=== PATIENT | female | born 2000 | race African-American/Black ===

== ENCOUNTER 2021-05-27 17:19 | Emergency (ER) | payer SELFPAY ==
--- NOTE | ~2021-05-27 | CT_ITS ---
EXAMINATION: CT thoracic lumbar wo con DATE: 05/27/2021 21:15 INDICATION: Paresthesia of the hands and feet TECHNIQUE: Computed tomography (CT) of the thoracic and lumbar spine was performed without intravenou s contrast. The dose-length product (DLP) was 1092.71 mGy-cm. Iterative reconstruction was used. COMPARISON: None FINDINGS: Thoracic spine: There is no fracture, dislocation, or subluxation. The vertebral body heights, alignm ent, and intervertebral disc spaces are normal. The paravertebral soft tissues are unremarkable. Lumbar spine: There is no fracture. There is 1 mm of retrolisthesis of L5 on S1. The vertebral body h eights are normal. There is mild loss of intervertebral disc space height at L5-S1. The paravertebral soft tissues are unremarkable. There is a 4 cm soft tissue density of the left adnexa. IMPRESSION: 1. No acute osseous abnormality of the thoracic spine. 2. Mild lumbar spondylosis. 3. 4 cm soft tissue density of the left adnexa likely related to the left ovary. Follow-up with nonem ergent pelvic ultrasound is recommended. Reviewed, dictated and finalized at location A. IMPRESSION: 1. No acute osseous abnormality of the thoracic spine. 2. Mild lumbar spondylosis. 3. 4 cm soft tissue density of the left adnexa likely related to the left ovary . Follow-up with nonemergent pelvic ultrasound is recommended.
--- NOTE | ~2021-05-27 | CT_ITS ---
EXAMINATION: CT cervical spine wo con DATE: 05/27/2021 21:15 INDICATION: Paresthesia of the hands and feet TECHNIQUE: Computed tomography (CT) of the cervical spine was performed without intravenous contrast. The dose-length product (DLP) was 397.78 mGy-cm. Automated exposure control and iterative reconstruc tion technique were employed. COMPARISON: None FINDINGS: There is reversal of normal cervical lordosis. No fracture, dislocation, or subluxation is identified. The odontoid is intact. The prevertebral soft tissues are normal. IMPRESSION: 1. No acute osseous abnormality. Reviewed, dictated and finalized at location A.
[2021-05-27 17:39] VITALS: BP 118/76; PULSE 73; RESP 18; TEMP 36; O2SAT 100
[2021-05-27] MEDS: ORPHENADRINE CITRATE 100 MG TABLET.ER PO (20:45)
[2021-05-27] MEDS: KETOROLAC (*BKC) 60 MG/2 ML VIAL IM (20:45)
[2021-05-27 21:09] LABS: Add Urine Microscopic? YES; Appearance Urine Cloudy (Clear); Bilirubin Urine Negative (Negative); Blood Urine Negative (Negative); Color Urine Yellow (Yellow); Glucose Urine UA Negative (Negative); Ketones Urine Negative (Negative); Leukocyte Esterase Ur Negative LEU/UL (Negative); Mucus Urine Rare /lpf; Nitrate Urine Negative (Negative); Protein Urine Negative (Negative); Specific Grav Ur 1.012 (1.001-1.035); Squamous Epithelial Cell Urine Moderate /hpf (Few); Urobilinogen Urine Negative mg/dL (<2.0); WBC Urine 0-3 /hpf
--- NOTE | 2021-05-27 21:48 | ED.GENADULT ---
HPI - General Adult General Chief complaint: Back Pain/Injury Stated complaint: Middle Back Pain x1 week, Nausea Time Seen by Provider: 05/27/21 20:20 History of Present Illness HPI narrative: Patient 20-year-old female presents the emergency department with chief complaint of back pain. Patient reports she has history of scoliosis and also history of a prior cervical injury which she wore a brace for some period of time. Patient states that she has been having some tightness in her back and reported that she stretched and popped her back after the pop in her back she felt tingling in her hands and feet denies any bowel or bladder dysfunction denies any saddle anesthesia denies any foot drop. The patient states that the discomfort was intermittent but today she stretched and its been more constant now. The patient states that she had no fever denies any new trauma. Related Data Allergies Allergy/AdvReac Type Severity Reaction Status Date / Time No Known Allergies Allergy Verified 05/27/21 19:26 Review of Systems Review of Systems: A 10 system review of systems was completed on the patient and is negative except for what is stated in the HPI. Nursing and ancillary documentation was reviewed. Exam Narrative: GENERAL: Well-appearing, well-nourished, and in no acute distress. HEAD: Normocephalic, atraumatic. EYES: PERRLA and EOMI. ENT: Nares clear, no rhinorrhea or epistaxis. Mucous membranes moist. NECK: Supple. CHEST: Clear to auscultation. No respiratory distress. HEART: Regular rate and rhythm. No murmur heard. Normal peripheral pulses. ABDOMEN: Soft, nontender, nondistended, normal active bowel sounds. EXTREMITIES: Normal range of motion. No edema. SKIN: Warm, dry, no rash. NEURO: No focal deficits. Alert and oriented x3. PSYCH: Normal mood and affect. Course Vital Signs Vital signs: Vital Signs Temperature 36.0 C L 05/27/21 17:39 Pulse Rate 73 05/27/21 17:39 Respiratory Rate 18 05/27/21 17:39 Blood Pressure 118/76 05/27/21 17:39 Pulse Oximetry 100 05/27/21 17:39 Temperature 36.0 C L 05/27/21 17:39 Pulse Rate 73 05/27/21 17:39 Respiratory Rate 18 05/27/21 17:39 Blood Pressure 118/76 05/27/21 17:39 Pulse Oximetry 100 05/27/21 17:39 Medical Decision Making Vital Signs Vital Signs: Vital Signs Temperature 36.0 C L 05/27/21 17:39 Pulse Rate 73 05/27/21 17:39 Respiratory Rate 18 05/27/21 17:39 Blood Pressure 118/76 05/27/21 17:39 Pulse Oximetry 100 05/27/21 17:39 Temperature 36.0 C L 05/27/21 17:39 Pulse Rate 73 05/27/21 17:39 Respiratory Rate 18 05/27/21 17:39 Blood Pressure 118/76 05/27/21 17:39 Pulse Oximetry 100 05/27/21 17:39 Lab Data Labs: Lab Results 05/27/21 Range/Units 20:50 Urine Color Yellow (Yellow) Urine Appearance Cloudy H (Clear) Urine pH 6.0 (5.0-9.0) Ur Specific [place] 1.012 (1.001-1.035) Urine Protein Negative (Negative) mg/dL Urine Glucose (UA) Negative (Negative) mg/dL Urine Ketones Negative (Negative) mg/dL Ur Blood (Man) Negative (Negative) Urine Nitrate Negative (Negative) Urine Bilirubin Negative (Negative) Urine Urobilinogen Negative (<2.0) mg/dL Leukocyte Esterase Rfl Negative (Negative) JAVIER/UL Urine RBC 3-5 H (0-2) /hpf Urine WBC 0-3 /hpf Ur Squamous Epith Cells Moderate H (Few) /hpf Urine Mucus Rare /lpf UCG Bedside Result Negative Reference Range: Negative Discharge Plan Discharge Clinical Impression: Back pain Qualifiers: Back pain location: back pain in unspecified location Chronicity: acute Back pain laterality: midline Qualified Code(s): M54.9 - Dorsalgia, unspecified Patient Disposition: Home, Self-Care Condition: Stable Instructions: Antibiotic Form, Back Pain (ED) Prescriptions: New cyclobenzaprine 10 mg tablet 10 mg PO TID PRN (Reason: m
[2021-05-27 22:15] VITALS: BP 110/72; PULSE 70; RESP 16; TEMP 37; O2SAT 100
== END 2021-05-27 22:15 | disposition home or self-care (01) ==
PROVIDERS: Emergency Provider Emergency Medicine
DX: M54.6 Pain in thoracic spine (principal); M47.816 Spondylosis without myelopathy or radiculopathy, lumbar region; N94.89 Other specified conditions associated with female genital organs and menstrual cycle
CPT/HCPCS: 72125; 72128; 72131; 81001; 81025; 96372; 99284; A9270; J1100; J1885; J3010

== ENCOUNTER 2021-06-17 12:08 | Emergency (ER) | payer SELFPAY ==
--- NOTE | ~2021-06-17 | XR_ITS ---
XR ankle RT min 3V 06/17/2021 12:25 INDICATION: Right ankle pain PROCEDURE: 5 views right ankle COMPARISON: No prior studies for comparison. FINDINGS: Fracture, dislocation or subluxation is not identified. The soft tissues appear within norm al limits. No foreign bodies are identified. IMPRESSION: 1: NO ACUTE BONE OR JOINT ABNORMALITY IDENTIFIED. Reviewed, dictated and finalized at location A. [employer]
[2021-06-17 12:14] VITALS: BP 113/60; PULSE 83; RESP 12; TEMP 36.8; O2SAT 100
--- NOTE | 2021-06-17 12:14 | ED.LOWEXIN ---
HPI - Extremity Injury (Lower) General Chief Complaint: Extremity Injury, Lower Stated Complaint: INJURED R ANKLE Time Seen by Provider: 06/17/21 12:41 Source: patient and RN notes reviewed Mode of arrival: ambulatory Limitations: no limitations History of Present Illness HPI Narrative: 20-year-old female presents with concern for right ankle pain. Reports yesterday she twisted her ankle and has had posterior pain. She denies any decrease strength, sensation, range of motion. She reports she has been using an David wrap. Reports difficulty doing her job today due to the pain. MD complaint: ankle injury Related Data Home Medications Medication Instructions Recorded Confirmed No Home Medications 06/17/21 06/17/21 Allergies Allergy/AdvReac Type Severity Reaction Status Date / Time No Known Allergies Allergy Verified 06/17/21 12:14 Review of Systems Review of Systems: CONSTITUTIONAL: Denies malaise, chills, sweats, or fever. SKIN: Denies lacerations, abrasions, redness, bruising. Reports swelling MUSCULOSKELETAL: Reports right ankle pain NEUROLOGIC: Denies numbness, weakness All systems reviewed & are unremarkable except as noted in HPI and below PMFSH Comments At time of signature, agree with nursing past medical, surgical, social and family history. There is no relevant family history pertinent to the presenting complaint Exam Narrative: GENERAL: Well-appearing, well-nourished, and in no acute distress. HEAD: Normocephalic, atraumatic. EYES: PERRLA, conjunctivae clear NECK: Supple. CHEST: Speaks in full sentences. No respiratory distress. HEART: Regular rate and rhythm. Normal and equal peripheral pulses. EXTREMITIES: Right ankle, foot, digits have normal strength and sensation, normal range of motion. No edema or ecchymosis. 5/5 strength with ankle and digit flexion and extension. Normal sensation with sensitivity to light touch and pain. Posterior ankle tenderness. No open wounds, no skin tenting, no devitalized tissue or atrophy, no trophic changes, no obvious deformity, alignment normal, nearby joints and structures intact. Distal pulses palpable and equal bilaterally, skin warm, dry, pink. Capillary refill less than 3 seconds. SKIN: Warm, dry, no rash. NEURO: Alert and oriented x3. PSYCH: Normal mood and affect Course Course Emergency Course: Patient is aware of diagnosis, understands and agrees to treatment plan. Anticipatory guidance given. Patient agrees to follow-up as directed and is aware of reasons to seek care at the emergency department. Portions of this record may have been created with voice recognition software Vital Signs Vital signs: Vital Signs Temperature 98.3 F 06/17/21 12:14 Pulse Rate 83 06/17/21 12:14 Respiratory Rate 12 06/17/21 12:14 Blood Pressure 113/60 06/17/21 12:14 Pulse Oximetry 100 06/17/21 12:14 Temperature 98.3 F 06/17/21 12:14 Pulse Rate 83 06/17/21 12:14 Respiratory Rate 12 06/17/21 12:14 Blood Pressure 113/60 06/17/21 12:14 Pulse Oximetry 100 06/17/21 12:14 Reviewed. MDM - Extremity Injury (Lower) MDM Narrative Medical decision making narrative: Patients injury and pain is consistent with musculoskeletal etiology. No signs of neurological or vascular compromise on exam. Compartments and tissues are soft without signs of compartment syndrome. Pain is felt appropriate for further evaluation on an outpatient basis. Imaging Data My impression: Images reviewed, interpreted by radiologist, agree, see report. Radiologist's impression: XR ankle RT min 3V 06/17/2021 12:25 INDICATION: Right ankle pain PROCEDURE: 5 views right ankle COMPARISON: No prior studies for comparison. FINDINGS: Fracture, dislocation or subluxation is not identified. The soft tissues appear within normal limits. No foreign bodies are identified. IMPRESSION: 1: NO ACUTE BONE OR JOINT ABNORMALITY IDENTIFIED. Critical Care Time Critical Care Time
== END 2021-06-17 12:56 | disposition home or self-care (01) ==
PROVIDERS: Emergency Provider Nurse Practitioner
DX: S93.401A Sprain of unspecified ligament of right ankle, initial encounter (principal); S96.911A Strain of unspecified muscle and tendon at ankle and foot level, right foot, initial encounter; X50.9XXA Other and unspecified overexertion or strenuous movements or postures, initial encounter; M41.9 Scoliosis, unspecified
CPT/HCPCS: 73610; 99213; G0463